=== PATIENT | male | born 1965 | race Caucasian/White ===

== ENCOUNTER 2016-08-25 12:29 | Emergency (ER) | payer OTHER ==
[~2016-08-25] VITALS: Ht 172.7 cm; Wt 93.6 kg
[2016-08-25 12:38] VITALS: BP 141/86
[2016-08-25] MEDS ORDERED: TYLENOL WITH C1 EACH PO (15:47)
[2016-08-25] MEDS ORDERED: KEFLEX500 MG PO (15:47)
== END 2016-08-25 16:29 ==
LOC: EME 12:29 → RME 13:15
DX: S62.631B Displaced fracture of distal phalanx of left index finger, initial encounter for open fracture (principal); S61.211A Laceration without foreign body of left index finger without damage to nail, initial encounter; W23.0XXA Caught, crushed, jammed, or pinched between moving objects, initial encounter; Y92.149 Unspecified place in prison as the place of occurrence of the external cause; Z23 Encounter for immunization
CPT/HCPCS: 73140; 99281; 99285; J0690; J7050; S0020